=== PATIENT | female | born 1950 | race Caucasian/White ===

== ENCOUNTER → 2018-07-21 | Outpatient (CLI) | payer MEDICARE ==
[~2018-07-21] MED LIST: BIO PO; CALC-42 PO; ESTR25PO PO; OXYC-302 PO; TURMERIC PO; UBID1CAP43 PO; VITA1CAP PO; VITAMIN C PO; VITAMIN D PO
== END | disposition home or self-care (01) ==
LOC: STAR 12:52
PROVIDERS: ATTEND Colon & Rectal Surgery
DX: Z01.818 Encounter for other preprocedural examination (principal)
CPT/HCPCS: 93005